=== PATIENT | male | born 1950 | race Caucasian/White ===

== ENCOUNTER → 2024-04-09 13:05 | Outpatient (REF) | payer OTHER, SELFPAY | LOC: RCS 13:05 | PROVIDERS: ATTENDING PHYSICIAN Internal Medicine | DX: R00.2 Palpitations (principal); R01.1 Cardiac murmur, unspecified | CPT/HCPCS: 93225; 93226 ==

== ENCOUNTER → 2024-04-12 10:08 | Outpatient (REF) | payer OTHER, SELFPAY | LOC: RCS 10:08 | PROVIDERS: ATTENDING PHYSICIAN Internal Medicine | DX: R01.1 Cardiac murmur, unspecified (principal) | CPT/HCPCS: 93306 ==

== ENCOUNTER 2024-04-14 06:17 | Day surgery (SDC) | payer OTHER, SELFPAY | END 2024-04-14 12:00 | disposition home or self-care (01) | LOC: GI 06:17 | PROVIDERS: ATTENDING PHYSICIAN Specialist; FAMILY PHYSICIAN Internal Medicine | DX: R13.10 Dysphagia, unspecified (principal); K31.89 Other diseases of stomach and duodenum; K31.A0 Gastric intestinal metaplasia, unspecified | CPT/HCPCS: 43239; 88305; 88342 ==

== ENCOUNTER → 2025-02-16 06:57 | Outpatient (REF) | payer MEDICARE, SELFPAY | LOC: MRI 06:57 | PROVIDERS: ATTENDING PHYSICIAN Physical Medicine & Rehabilitation; FAMILY PHYSICIAN Internal Medicine | DX: M54.16 Radiculopathy, lumbar region (principal) | CPT/HCPCS: 72148 ==